=== PATIENT | female | born 1965 | race African-American/Black ===

== ENCOUNTER 2024-07-14 17:18 | Emergency (ER) | payer MEDICAID ==
[~2024-07-14] VITALS: Ht 162.6 cm; Wt 80.0 kg
[2024-07-14 17:24] VITALS: O2SAT 98
[2024-07-14 21:19] LABS: HEMATOCRIT 36.6 % (36.0-48.0); HEMOGLOBIN 12.1 g/dL (12.0-16.0); MEAN CORPUSCULAR HEMOGLOBIN 29.5 pg (28.0-32.0); MEAN CORPUSCULAR HGB CONC 33.1 g/dL (31.0-37.0); MEAN CORPUSCULAR VOLUME 89.1 fL (81.0-99.0); PLATELET 214 x1000/uL (130-400); RED BLOOD CELL COUNT 4.11 mill/uL (4.2-5.4); RED CELL DISTRIBUTION WIDTH 14.6 % (11.6-14.6); WHITE BLOOD COUNT 7.4 x1000/uL (4.5-11.0)
[2024-07-14 21:30] LABS: CHLORIDE 107 mEq/L (98-107); POTASSIUM 3.9 mEq/L (3.5-5.1); SODIUM 142 mEq/L (136-145)
[2024-07-14 21:31] LABS: CALCIUM 9.5 mg/dL (8.7-10.4); CARBON DIOXIDE 26 mEq/L (21-32)
[2024-07-14 21:36] LABS: GLUCOSE 106 mg/dL (70-105); UREA NITROGEN BLOOD 11 mg/dL (9-23)
[2024-07-14] MEDS: HYDROCODONE/ACETAMINOPHEN 5/325MG TABLET PO STA (22:56)
[2024-07-15] MEDS ORDERED: NAPR-681 MT (01:00)
[2024-07-15 04:00] VITALS: BP 141/84; PULSE 61; RESP 20; TEMP 36.89184; O2SAT 97
== END 2024-07-15 04:00 | disposition home or self-care (01) ==
LOC: ER 17:18
DX: S16.1XXA Strain of muscle, fascia and tendon at neck level, initial encounter (principal); R51.9 Headache, unspecified; M54.9 Dorsalgia, unspecified; I10 Essential (primary) hypertension; V49.40XA Driver injured in collision with unspecified motor vehicles in traffic accident, initial encounter; Y93.89 Activity, other specified; Y92.89 Other specified places as the place of occurrence of the external cause; Y99.8 Other external cause status
CPT/HCPCS: 36415; 71045; 72110; 74176; 80048; 85027; 93005; 99284; 99285